=== PATIENT | male | born 1950 | race Caucasian/White ===

== ENCOUNTER 2017-08-11 07:35 | Inpatient (IN) | payer BC, MEDICARE ==
[2017-07-30 11:42] VITALS: BMI 38.0
--- NOTE | 2017-08-10 14:36 | HP ---
HISTORY AND PHYSICAL REASON FOR ADMISSION: Surgery scheduled for 08/11/2017 HISTORY OF PRESENT ILLNESS: Milton Lopez is a 67-year-old patient seen with symptomatic right knee osteoarthritis. After treatment options were discussed, he elected to proceed with right total knee arthroplasty. Consent regarding procedure obtained. Medical clearance provided by Dr. Dobbs. PAST MEDICAL HISTORY: COPD and hypertension. PAST SURGICAL HISTORY: Back surgery. MEDICATIONS: Furosemide, potassium, spironolactone. ALLERGIES: None reported. SOCIAL HISTORY: Patient denies current tobacco use. PHYSICAL EXAMINATION: Evaluation of the right knee is range of motion is -12 to 110 degrees. Moderate effusion. Tenderness along the medial and lateral joint lines. Crepitus medial and patellofemoral compartments with range of motion. Pain with patellofemoral compression. Ligaments stable. Hip rotation without pain. Distal neurovascular exam intact. RADIOGRAPHS: Radiographs of the right knee reveal severe medial and patellofemoral compartment osteoarthritis. IMPRESSION: 1. Right knee osteoarthritis. 2. Hypertension. 3. Chronic obstructive pulmonary disease. PLAN: Right total knee arthroplasty. Surgery scheduled for 08/11/2017. MMODL / IJN: [id number] /
[~2017-08-11 07:35] MED LIST: ACETAMINOPHEN TAB 500 MG TAB PO ONE; HYDROmorphone 0.5 MG/0.5 ML SYRINGE IVP PRN; LIDOCAINE 1% 20 ML VIAL (10MG/ML) FOR IV START INTRADERMA PRN; MELOXICAM 7.5 MG TAB PO ONE; MIDAZOLAM 2 MG/2 ML VIAL IV PRN; ONDANSETRON 4 MG/2 ML VIAL IVP ONE; TRANEXAMIC ACID 1,000 MG in SODIUM CHLORIDE 0.9% 100 ML IVPB ONE
[2017-08-11] MEDS: LACTATED RINGERS 1,000 ML IV SCH ×3 (08:24→22:49)
[2017-08-11] MEDS: fentaNYL (PF) 50 MCG/ML 20 ML VIAL IVP PRN ×2 (09:03→09:43)
[2017-08-11] MEDS ORDERED: ROPIVACAINE 1,100 MG, SODIUM CHLORIDE 0.9% 330 ML MISCELLANE PRN ×2 (09:33)
[2017-08-11] MEDS ORDERED: ROPIVACAINE 246.25 MG, EPINEPHrine 0.5 MG, KETOROLAC 30 MG, cloNIDine HCL/PF 80 MCG, WA... MISCELLANE ONE ×5 (09:34)
--- NOTE | 2017-08-11 09:35 | P.ONQ ---
Anesthesiology Proc Note - PNB - Peripheral Nerve Block Performed Right Adductor Canal Infusion Time Out Performed: Yes Procedure Start Time: 09:03 Indication: Acute Post-Operative Pain, Analgesia Specifically requested for management of pain by DrBola: Luis Angel Casillas Sedation Type: Sedate with meaningful contact maintained Preparation: Sterile Prep Position: Supine Catheter Depth at Skin (cm): 8 Catheter: Indwelling Needle Types: Other (see comment) (Pajunk) Needle Size: 100mm (4") Needle Gauge: 18 Technique: Ultrasound Injectate: 0.5% Ropivacaine (see comment for volume) (20 cc) Blood Aspirated: No Pain Paresthesia on Injection Noted: No Resistance on Injection: Normal Events: Uneventful and Well Tolerated
[2017-08-11] MEDS ORDERED: PROPOFOL 10 MG/ML 20 ML VIAL IV ONE (10:05)
[2017-08-11] MEDS ORDERED: fentaNYL (PF) 50 MCG/ML 2 ML AMP ONE (10:05)
[2017-08-11] MEDS ORDERED: MIDAZOLAM 2 MG/2 ML VIAL ONE (10:05)
[2017-08-11] MEDS ORDERED: TRANEXAMIC ACID 1,000 MG/10 ML VIAL ONE (10:05)
[2017-08-11] MEDS ORDERED: SODIUM CHLORIDE 0.9% 100 ML BAG ONE (10:05)
[2017-08-11] MEDS ORDERED: ceFAZolin 3,000 MG in SODIUM CHLORIDE 0.9% IRRIGATIO 3,000 ML IRRIGATION ONE (10:41)
[2017-08-11] MEDS ORDERED: NALOXONE 0.4 MG/ML 1 ML VIAL IV PRN (12:12)
[2017-08-11] MEDS ORDERED: HYDROmorphone 2 MG/ML 1 ML SYRINGE IVP PRN ×3 (12:12)
[2017-08-11] MEDS ORDERED: hydrOXYzine PAMOATE 25 MG CAP PO PRN (12:12)
[2017-08-11] MEDS ORDERED: HYDROcodone/APAP 7.5-325MG 1 EACH TAB PO PRN (12:12)
[2017-08-11] MEDS ORDERED: ONDANSETRON 4 MG/2 ML VIAL IVP PRN (12:12)
--- NOTE | 2017-08-11 12:12 | P.OP ---
Date of Procedure: 08/11/17 Preoperative Diagnosis: Right knee osteoarthritis Postoperative Diagnosis: Right knee osteoarthritis Procedure(s) Performed: Right total knee arthroplasty Implants: 1. Viviane persona size 11 right standard cruciate retaining cemented femur 2. Viviane persona size G cemented tibia 3. Viviane persona 10 mm medial congruent polyethylene tibial insert 4. Viviane persona 38 mm all polyethylene cemented patella Anesthesia: regional (Adductor canal catheter), local, spinal Surgeon: Luis Angel Casillas Gray Tender #1: Flaco Boo Estimated Blood Loss (ml): 75 Pathology: other (Bone) Condition: stable Disposition: PACU Indications for Procedure: 67-year-old patient seen with symptomatic right knee osteoarthritis. After treatment options were discussed, he elected to proceed with total knee arthroplasty. Operative Findings: See description of procedure Description of Procedure: Patient was taken to the operative suite after having an adductor canal catheter placed by the department of anesthesia.. Patient underwent a spinal anesthetic by the department of anesthesia. Patient was given preoperative IV intake antibiotics and TXA. A well-padded tourniquet was placed about the right lower extremity. The lower extremity was then prepped and draped in the normal sterile orthopedic fashion. The extremity was elevated, a tourniquet was insufflated to 350. A standard anterior incision was made sharply through skin. Dissection was taken down through the subcutaneous soft tissues down to the extensor mechanism. A medial arthrotomy was performed, patella was everted and knee was flexed. There was advanced osteoarthritis noted. A proximal tibial cutting guide was positioned. Proximal tibial cut was made. A distal intramedullary femoral cutting guide was positioned, distal femoral cut made. We placed the appropriate sizing guide and selected the appropriate size. A distal 4-in-1 femoral cutting block was positioned, distal femoral cuts were made. We now placed a trial femoral component into position, along with an appropriate size tibial tray and insert. We now took the knee through range of motion and had full extension good flexion and good overall soft tissue balance noted. The patella was everted and a flush cut made with patellar quad tendon. We templated the patella, appropriate drill holes were made. An appropriate trial patella was positioned, knee was taken through full range of motion with the patella tracking very nicely. The trial patella was removed. Drill holes were made through the femoral component. All trial components were removed after marking off the appropriate rotation of the tibia. Retractors were now positioned along the proximal tibia. An appropriate keel punch was made with the appropriate size tibial guide. At this point appropriate size implants were chosen and opened. The joint was irrigated copiously with pulse lavage mechanical irrigation. The posterior capsule was infiltrated with local analgesic. We mixed antibiotic methylmethacrylate. Once the methyl methacrylate was ready, the tibial component was cemented into place removing any excess methylmethacrylate. The femoral component was cemented into place removing the removing any excess methylmethacrylate. We then inserted the appropriate size polyethylene tibial insert. We made sure that it was locked into position. We took the knee into full extension, and then back in a flexion making sure we had removed any excess methylmethacrylate. The patellar component was then cemented down and secured with clamp. Excess methylmethacrylate removed. We kept the knee in full extension, patellar clamp in position until methylmethacrylate had hardened. Once it had hardened the patellar clamp was removed. The knee was taken through full range of motion. The patella tracked nicely. There was good soft tissue balancing. The tourniquet was now released. Additional hemostasis was achieved via electrocautery. A second gram of TXA was given. The superficial soft tissues were infiltrated local analgesic. The wound was irrigated with pulse lavage mechanical irrigation. The extensor mechanism was repaired with Vicryl. We checked the repair with range of motion and it was stable. The subcutaneous soft tissues were repaired with Vicryl in layers. The skin was approximated with pernio/Dermabond. Sterile dressings were applied followed by loose web roll and Dwain bandage. The patient was transferred to a bed, and taken to recovery in stable and satisfactory condition. Torito ANTONIO assisted with the procedure.
[2017-08-11] MEDS ORDERED: traMADol 50 MG TAB PO SCH (13:00)
--- NOTE | 2017-08-11 14:01 | XR ---
EXAMINATION TYPE: XR knee limited RT DATE OF EXAM: 08/11/2017 CLINICAL HISTORY: Right knee pain and arthritis status post total knee replacement. TECHNIQUE: Portable AP and crosstable lateral views of the right knee are obtained immediately posto peratively. COMPARISON: None FINDINGS: Metallic hardware from total right knee arthroplasty is seen and appears satisfactory in a lignment and position. There is evidence of recent surgery with diffuse subcutaneous and diffuse sof t tissue swelling noted. Atherosclerosis of the femoral artery and its branches are incidentally note d. IMPRESSION: METALLIC HARDWARE FROM TOTAL RIGHT KNEE ARTHROPLASTY IS SATISFACTORY IN ALIGNMENT.
[2017-08-11] MEDS: traMADol 50 MG TAB PO SCH ×2 (18:03→20:51)
[2017-08-11] MEDS: ENOXAPARIN 30 MG/0.3 ML SYRINGE SQ SCH (20:46)
[2017-08-11] MEDS ORDERED: SENNOSIDES-DOCUSATE SODIUM 1 EACH TAB PO SCH (21:00)
[2017-08-12] MEDS: HYDROcodone/APAP 7.5-325MG 1 EACH TAB PO PRN ×3 (01:48→14:44)
[2017-08-12 02:10] VITALS: RESP 16
[2017-08-12] MEDS: LACTATED RINGERS 1,000 ML IV SCH ×2 (06:08→07:03)
[2017-08-12 07:22] VITALS: BP 127/69; PULSE 69; TEMP 97.6
[2017-08-12 07:44] LABS: Basophils % (A) 0 %; Eosinophils % (A) 0 %; HCT 40.2 % (39.0-53.0); HGB 12.9 gm/dL (13.0-17.5); Lymphocytes # (A) 0.8 k/uL (1.0-4.8); Lymphocytes % (A) 9 %; MCH 29.7 pg (25.0-35.0); MCV 92.7 fL (80.0-100.0); Mean Platelet Volume 7.8; Monocytes # (A) 0.4 k/uL (0-1.0); Monocytes % (A) 5 %; Neutrophils # (A) 7.3 k/uL (1.3-7.7); Neutrophils % (A) 83 %; Platelet Count 147 k/uL (150-450); RBC 4.34 m/uL (4.30-5.90); RDW 14.3 % (11.5-15.5); WBC 8.8 k/uL (3.8-10.6)
[2017-08-12] MEDS: traMADol 50 MG TAB PO SCH ×2 (08:16→12:47)
[2017-08-12] MEDS: ENOXAPARIN 30 MG/0.3 ML SYRINGE SQ SCH (08:16)
[2017-08-12] MEDS ORDERED: MELOXICAM 7.5 MG TAB PO SCH (09:00)
[2017-08-12] MEDS ORDERED: SPIRONOLACTONE 25 MG TAB PO SCH (09:00)
[2017-08-12] MEDS ORDERED: FAMOTIDINE 20 MG TAB PO SCH (09:00)
[2017-08-12] MEDS ORDERED: FUROSEMIDE 40 MG TAB PO SCH (09:00)
[2017-08-12] MEDS ORDERED: POTASSIUM CHLORIDE ER 10 MEQ TAB.ER.PRT PO SCH (09:00)
--- NOTE | 2017-08-12 09:20 | P.PN ---
Progress Note - Text Anesthesia POD 1. Patient is status post right TKR under on anesthesia with a right adductor canal catheter placed for postoperative pain relief. With ropivacaine 0.2% running at 10 cc's per hour, the patient's VAS is (2, 4). Catheter site is clean dry and intact.
--- NOTE | 2017-08-12 11:14 | CONS ---
CONSULTATION CHIEF COMPLAINT: A 67-year-old white male with right knee osteoarthritis. HISTORY OF PRESENT ILLNESS: a 67-year-old white male, status post right total knee arthroscopy for medical management consult. Patient states he has no pain on his knee, he is able to bend it. He wants to go home tomorrow. He is having no chest pain, shortness of breath. He has a history of COPD, hypertension, right-sided heart failure, diastolic CHF. PAST MEDICAL HISTORY: COPD, hypertension. Ex-nicotine addiction 4 years ago, quit. SURGICAL HISTORY: Back surgery. MEDICATIONS: Furosemide, potassium, spironolactone. ALLERGIES: Negative. SOCIAL HISTORY: No alcohol, illicit drugs. PHYSICAL EXAM: Vital signs are stable, afebrile. CARDIOVASCULAR: S1, S2. LUNGS: Clear. GI: Soft. HEMATOLOGIC: Negative Homans. PSYCH: Fair mood and affect. ASSESSMENT: 1. Status post right knee, total knee replacement. 2. Hypertension. 3. Chronic obstructive pulmonary disease. 4. Suspect diastolic heart failure. Resume home medications. Continue with PT, OT, and ambulation. Possible discharge home tomorrow. Medically stable at this time. MMODL / IJN: [id number] /
[2017-08-12] MEDS ORDERED: MULTIVITAMINS, THERA 1 EACH TAB PO SCH (12:00)
--- NOTE | 2017-08-12 13:16 | P.PN ---
Subjective Progress Note Date: 08/12/17 Principal diagnosis: Status post right total knee arthroplasty Patient seen today resting in his hospital chair, he appears comfortable. Patient's done very well at this point, he is ambulated with therapy. He is urinating on his own. He's had no breakthrough pain. He denies any headaches, lightheadedness, chest pain, shortness of breath. Objective - Vital Signs Vital signs: Vital Signs Temp 97.6 F 08/12/17 07:00 Pulse 69 08/12/17 07:00 Resp 16 08/12/17 07:00 BP 127/69 08/12/17 07:00 Pulse Ox 91 L 08/12/17 07:00 Intake & Output 08/11/17 08/12/17 08/12/17 18:59 06:59 18:59 Intake Total 851 0 Output Total 375 Balance 476 0 Weight 127.006 kg Intake: IV 851 Intake, IV Titration 1200 Amount Lactated Ringers 1,000 ml 1150 @ 100 mls/hr IV .Q10H WAYLON Rx#:[id number] ceFAZolin 3 gm In Sodium 50 Chloride 0.9% 50 ml @ 50 mls/hr IVPB Q8H WAYLON Rx#: [id number] Oral 850 Output: Urine 300 Estimated Blood Loss 75 Other: Voiding Method Urinal Urinal Urinal # Voids 2 - Exam Right lower extremity: Incision is clean, dry, and intact. The prineo tape is in good condition. There is minimal soft tissue swelling and ecchymosis surrounding the medial and lateral aspects of the incision. Calf is soft, no tenderness with palpation. Plantar flexion, dorsiflexion, EHL, FHL are intact. Sensory exam to light touch throughout the extremity is intact, dorsal pedis pulses 2+. - Labs CBC & Chem 7: 08/12/17 06:57 Labs: Abnormal Lab Results - Last 24 Hours (Table) 08/12/17 Range/Units 06:57 Hgb 12.9 L (13.0-17.5) gm/dL Plt Count 147 L (150-450) k/uL Lymphocytes # 0.8 L (1.0-4.8) k/uL Assessment and Plan Plan: Assessment: 1. Postop day #1 status post right total knee arthroplasty Plan: 1. Pain control, we'll discharge home on oral medication 2. GI and DVT prophylaxis, aspirin 325 mg twice a day 3. Wound care instructions were discussed 4. Home physical therapy and nursing, CPM at home 5. Medical recommendations 6. Discharge planning: Patient will likely be discharged home today Time with Patient: Less than 30
--- NOTE | 2017-08-12 13:18 | P.DS ---
Providers Date of admission: 08/11/17 07:35 Expected date of discharge: 08/12/17 Attending physician: Luis Angel Casillas Consults: 08/11/17 12:12 Consult Physician Routine Consulting Provider: Timothy Garcia Reason/Comments: Medical management Do you want consulting provider notified?: Yes Primary care physician: Sina Angelrien [facility] Course: Date of admission: 08/11/2017 Date of discharge: 08/12/2017 Admission diagnosis: Status post right total knee arthroplasty Discharge diagnosis: Same Attending physician: Dr. Casillas Surgical procedures: right total knee arthroplasty Brief history: Patient is a a 67-year-old male with a history of of progressive primary right knee osteoarthritis. At this point patient has failed conservative treatment measures and has opted to proceed with a elective right total knee arthroplasty. Hospital course: Details of patient's surgery can be found in operative report. Patient tolerated the procedure well and was subsequently transported to orthopedic floor. Patient's orthopeidc and medical care was provided daily. Patient had daily laboratory tests performed for evaluation of overall blood counts . Patient had daily physical therapy to include strengthening range of motion as well as education with walker ambulation. Patient had daily CPM usage as part of their physical therapy program. Patient was treated with Lovenox for their postoperative DVT prophylaxis during their inpatient stay. Patient was noted to have a relatively uneventful postoperative course. Patient reported satisfactory pain control with oral pain medications by postoperative day 0. Patient showed satisfactory progress with physical therapy. Patient moved steadily through the program and had no difficulty meeting the goals by postoperative day 1. Given patient's otherwise satisfactory course and having met physical therapy goals, plan is to discharge patient home on postoperative day 1. Discharge condition/disposition: Patient will be discharged home in stable condition. Discharge medications: Instructions are given on resumption of patient's normal daily medications per primary care recommendation, in addition patient will be prescribed Brewster 7.5 mg/325 mg, tramadol 50 mg, Colace 100 mg, aspirin 325 mg. Discharge instructions: 1. Wound care and infection precautions, keep incision dry and covered while showering, no lotions, creams, moisturizers. No soaking, tubs, pools, hottubs. Do not scrub over the incision. 2. Weight-bear as tolerated with walker / cane until follow-up. 3. Ice and elevate when necessary. Do not exceed 20 minutes per hour with ice pack. 4. Utilize compression sleeve until seen at first follow up appointment. 5. Visiting nursing care. 6. Home physical therapy including home CPM. 7. Pain meds and anticoagulants per prescription. 8. Pain medication has potential to cause constipation. Increase oral fluid and fiber intake. Contact primary care provider if you have not had a bowel movement within 48 hours after discharge 9. No anti-inflammatory medication until discussed at first post operative visit, this including Motrin, Aleve, Mobic, Diclofenac. 10. Follow up in office at 2 weeks postop with Torito Boo PA-C 11. Follow up with your primary care doctor 7-10 days after discharge. 12. Contact [facility] with any questions, . Procedures: Right total knee arthroplasty Patient Condition at Discharge: Good Plan - Discharge Summary Discharge Rx Participant: Yes New Discharge Prescriptions: New Aspirin 325 mg PO BID #60 tab Docusate [Colace] 100 mg PO DAILY #30 capsule HYDROcodone/APAP 7.5-325MG [Brewster 7.5] 1 - 2 each PO Q6HR PRN #60 tab PRN Reason: Pain traMADol HCl [Ultram] 50 mg PO Q6H PRN #40 tab PRN Reason: Pain No Action Spironolactone [Aldactone] 50 mg PO DAILY Meloxicam [Mobic] 15 mg PO DAILY Furosemide [Lasix] 40 mg PO DAILY Potassium Chloride [Klor-Con 10] 10 meq PO DAILY Discharge Medication List Furosemide [Lasix] 40 mg PO DAILY 07/30/17 [History] Meloxicam [Mobic] 15 mg PO DAILY 07/30/17 [History] Potassium Chloride [Klor-Con 10] 10 meq PO DAILY 07/30/17 [History] Spironolactone [Aldactone] 50 mg PO DAILY 07/30/17 [History] Aspirin 325 mg PO BID #60 tab 08/12/17 [Rx] Docusate [Colace] 100 mg PO DAILY #30 capsule 08/12/17 [Rx] HYDROcodone/APAP 7.5-325MG [Brewster 7.5] 1 - 2 each PO Q6HR PRN #60 tab 08/12/17 [ Rx] traMADol HCl [Ultram] 50 mg PO Q6H PRN #40 tab 08/12/17 [Rx] Follow up Appointment(s)/Referral(s): Sina Zapata DO [Primary Care Provider] - 08/26/17 2:00 pm Flaco Boo PAC [PH[employer]] - 08/27/17 1:30 pm Patient Instructions/Handouts: Knee Replacement (DC) Activity/Diet/Wound Care/Special Instructions: Orthopedic Discharge Instructions: 1. Wound care and infection precautions, keep incision dry and covered while showering, no lotions, creams, moisturizers. No soaking, pools, hot tubs. Do not scrub over incision. 2. Weight-bear as tolerated with walker / cane until follow-up. 3. Ice and elevate when necessary. Do not exceed 20 minutes per hour with ice pack. 4. Utilize compression sleeve until seen at first follow up appointment. 5. Visiting nursing care. 6. Home physical therapy including home CPM. 7. Pain meds and anticoagulants per prescription. 8. Pain medication has potential to cause constipation. Increase oral fluid and fiber intake. Contact primary care provider if you have not had a bowel movement within 48 hours after discharge. 9. No anti-inflammatory medication until discussed at first post operative visit, this including Motrin, Aleve, Mobic, Diclofenac. 10. Follow up in office at 2 weeks postop with Torito Boo PA-C 11. Follow up with your primary care doctor 7-10 days after discharge. 12. Contact [facility] with any questions, . Discharge Disposition: HOME WITH HOME HEALTH SERVICES
== END 2017-08-12 14:55 | disposition home health service (06) | DRG 470 ==
LOC: 2ORMAIN 07:35 → 3SUR 16:06
PROVIDERS: ADMIT Orthopaedic Surgery; ATTEND Orthopaedic Surgery
PROC: 0SRC0J9 Replacement of Right Knee Joint with Synthetic Substitute, Cemented, Open Approach (ICD-10-PCS; principal; 2017-08-11 10:20)
DX: M17.11 Unilateral primary osteoarthritis, right knee (principal); I50.32 Chronic diastolic (congestive) heart failure; I11.0 Hypertensive heart disease with heart failure; I27.81 Cor pulmonale (chronic); J44.9 Chronic obstructive pulmonary disease, unspecified; G47.30 Sleep apnea, unspecified; Z87.891 Personal history of nicotine dependence; Z79.899 Other long term (current) drug therapy
CPT/HCPCS: 85025; 88300

== ENCOUNTER → 2018-09-28 | Outpatient (CLI) | payer MEDICARE ==
[2018-09-28 10:19] LABS: Anion Gap 5 mmol/L; Basophils # (A) 0.1 k/uL (0-0.2); Basophils % (A) 1 %; Blood Urea Nitrogen 21 mg/dL (9-20); Calcium 9.2 mg/dL (8.4-10.2); Carbon Dioxide 31 mmol/L (22-30); Chloride 102 mmol/L (98-107); Eosinophils # (A) 0.1 k/uL (0-0.7); Eosinophils % (A) 1 %; Glucose 190 mg/dL (74-99); HCT 46.6 % (39.0-53.0); HGB 14.9 gm/dL (13.0-17.5); INR 0.9 (<1.2); Lymphocytes % (A) 17 %; MCH 29.8 pg (25.0-35.0); MCHC 31.9 g/dL (31.0-37.0); MCV 93.5 fL (80.0-100.0); Monocytes # (A) 0.3 k/uL (0-1.0); Monocytes % (A) 5 %; Neutrophils # (A) 4.4 k/uL (1.3-7.7); Neutrophils % (A) 75 %; Partial Thromboplastin Time 23.1 sec (22.0-30.0); Platelet Count 158 k/uL (150-450); Potassium 4.6 mmol/L (3.5-5.1); Prothrombin Time 10.2 sec (9.0-12.0); RBC 4.99 m/uL (4.30-5.90); RDW 13.8 % (11.5-15.5); Sodium 138 mmol/L (137-145); WBC 5.9 k/uL (3.8-10.6)
[2018-09-28 10:35] LABS: Appearance,Urine Clear (Clear); Bilirubin,Urine Negative (Negative); Blood,Urine Negative (Negative); Color,Urine Yellow; Glucose,Urine (UA) 4+ (Negative); Ketones,Urine Negative (Negative); Leukocyte Esterase,Urine Negative (Negative); Nitrite,Urine Negative (Negative); Protein,Urine Trace (Negative); Specific Gravity,Urine 1.021 (1.001-1.035); Urobilinogen,Urine <2.0 mg/dL (<2.0)
--- NOTE | 2018-09-28 15:45 | XR ---
EXAMINATION TYPE: XR chest 2V DATE OF EXAM: 09/28/2018 COMPARISON: 12/05/2017 INDICATION: Presurgical testing TECHNIQUE: Frontal and lateral views of the chest are obtained. FINDINGS: The heart size is normal. The pulmonary vasculature is normal. There is some linear opacity along the left lung base. Lungs are otherwise clear.. IMPRESSION: 1. Minimal plate atelectasis at the left diaphragm.
== END | disposition home or self-care (01) ==
LOC: LABPAT 08:51
PROVIDERS: ATTEND Orthopaedic Surgery Orthopaedic Surgery of the Spine
DX: Z01.818 Encounter for other preprocedural examination (principal); M48.02 Spinal stenosis, cervical region; Z01.812 Encounter for preprocedural laboratory examination; Z79.01 Long term (current) use of anticoagulants
CPT/HCPCS: 36415; 71046; 80048; 81003; 85025; 85610; 85730; 93005

== ENCOUNTER 2018-11-04 11:09 | Inpatient (IN) | payer MEDICARE ==
[~2018-11-04 11:09] MED LIST changes: -ACETAMINOPHEN TAB 500 MG TAB PO ONE; +BACITRACIN 50,000 UNIT, POLYMYXIN B 500,000 UNIT in SODIUM CHLORIDE 0.9% IRRIGATIO 1,00... IRRIGATION ONE; +DEXAMETHASONE SOD PHOSPHATE 10 MG/ML 1 ML VIAL IV ONE; -MELOXICAM 7.5 MG TAB PO ONE; -MIDAZOLAM 2 MG/2 ML VIAL IV PRN; +ONDANSETRON 4 MG/2 ML VIAL IVP PRN; +SCOPOLAMINE 1.5MG/72HR PATCH TRANSDERM ONE; -TRANEXAMIC ACID 1,000 MG in SODIUM CHLORIDE 0.9% 100 ML IVPB ONE; +ceFAZolin 3 GM in SODIUM CHLORIDE 0.9% 100 ML IVPB ONE
[2018-11-04] MEDS: LACTATED RINGERS 1,000 ML IV SCH (12:03)
[2018-11-04] MEDS ORDERED: BUPIVACAINE-EPI 0.5%-1:200,000 10 ML VIAL SQ ONE (13:19)
[2018-11-04] MEDS ORDERED: GELATIN SPONGE,ABSORB (LARGE) 1 EACH SPONGE MISCELLANE ONE (13:19)
[2018-11-04] MEDS ORDERED: THROMBIN (BOVINE) 5,000 UNIT VIAL TOPICAL ONE (13:19)
[2018-11-04] MEDS ORDERED: MIDAZOLAM 2 MG/2 ML VIAL ONE (13:21)
[2018-11-04] MEDS ORDERED: KETAMINE 10 MG/ML 20 ML VIAL ONE (13:21)
[2018-11-04] MEDS ORDERED: fentaNYL (PF) 50 MCG/ML 2 ML AMP ONE (13:21)
[2018-11-04] MEDS ORDERED: SUCCINYLCHOLINE CHLORIDE VIAL 200 MG/10 ML VIAL IV ONE (13:21)
[2018-11-04] MEDS ORDERED: PROPOFOL 10 MG/ML 20 ML VIAL IV ONE (13:21)
[2018-11-04] MEDS ORDERED: ePHEDrine SULFATE/0.9% NACL/PF 50 MG/5 ML SYRINGE IV ONE (13:21)
[2018-11-04] MEDS ORDERED: SODIUM CHLORIDE 0.9% 50 ML with ceFAZolin 3 GM IV ONE ×2 (13:30)
[2018-11-04] MEDS ORDERED: LACTATED RINGERS 1,000 ML IV ONE (14:45)
[2018-11-04] MEDS ORDERED: HYDROcodone/APAP 5-325MG 1 EACH TAB PO PRN (15:42)
[2018-11-04] MEDS ORDERED: ONDANSETRON 4 MG/2 ML VIAL IVP PRN (15:42)
[2018-11-04] MEDS ORDERED: MAGNESIUM HYDROXIDE 2,400 MG/10 ML CUP PO PRN (15:42)
[2018-11-04] MEDS ORDERED: ACETAMINOPHEN TAB 325 MG TAB PO PRN (15:42)
[2018-11-04] MEDS ORDERED: HYDROmorphone 1 MG/ML 1 ML SYRINGE IVP PRN (15:42)
[2018-11-04] MEDS ORDERED: HYDROmorphone 0.5 MG/0.5 ML SYRINGE IVP PRN (15:42)
[2018-11-04] MEDS ORDERED: BENZOCAINE/MENTHOL LOZENG 1 EACH LOZENGE MUCOUS MEM PRN (15:42)
[2018-11-04] MEDS ORDERED: PANTOPRAZOLE 40 MG TABLET PO PRN (15:44)
--- NOTE | 2018-11-04 15:56 | P.OP ---
Date of Procedure: 11/04/18 Preoperative Diagnosis: Cervical myelopathy, Severe cervical stenosis C4 5 C5 6 behind the vertebral body of C5, cervical myelomalacia, upper extremity radiculopathy, upper extremity weakness, myeloradiculopathy Postoperative Diagnosis: Same Anesthesia: GETA Pathology: none sent Condition: stable Disposition: PACU Description of Procedure: BRIEF OPERATIVE NOTE Preoperative Diagnosis: Cervical myelopathy, cervical myelomalacia, severe cervical stenosis C4 5 C5 6 with stenosis behind C5, degenerative disc disease, upper extremity radiculopathy, upper extremity weakness, myeloradiculopathy Postoperative Diagnosis: Same Procedure: Anterior cervical decompression with discectomy and fusion C4 5 C5 6 Cervical total corpectomy of C5 for decompression Harvesting of autogenous bone graft from C5 for use later as autogenous graft Placement of interbody graft from C4 to C6 Application of anterior cervical plate from C4 to C6 Surgeon: Dr. Freire Clock Maker: Troy Camargo is present throughout the entire the case persistence during positioning, dissection, exposure, visualization, and all c rucial elements of the case as well as closure. Anesthesia: General anesthesia Estimated blood loss: Approximately 50 mL Complications: None apparent Components implanted: K2M [place] anterior cervical plate system with 4 screws and a peek interbody graft measuring 24 mm filled with local autogenous bone graft Disposition: To recovery room in good stable condition. OPERATIVE INDICATIONS The patient has had long-standing issues in their neck and upper extremities. He has evidence of cervical myelopathy with cervical myelomalacia. He has severe cervical stenosis at C45 and 6 with upper extremity radiculopathy and weakness. He was having worsening symptoms despite conservative care. The patient has been through conservative treatment. His imaging correlated well with his neck and upper extremity symptoms and he was having worsening of his symptoms. We discussed various treatment options including surgery, and the patient wishes to proceed with surgery We discussed the risk, patient's alternatives and benefits of surgery including but not limited to, risk of bleeding risk of infection, risk of need for further surgery, risk of decreased, loss of motion, muscle function, malunion nonunion, hardware failure, nerve damage, paralysis, heart attack, and . OPERATIVE SUMMARY After discussing all the risks, patient alternatives and benefits at length, the patient elected to proceed with surgical intervention, signed informed consent, and presented for their procedure. The patient was seen and examined in the preoperative holding area and the surgical site was marked. The patient was given antibiotics and brought to the operating room. The patient was positioned on the operating room table in a supine position being careful to pad any bony prominences and pressure points. The patient was sedated and intubated by anesthesia in standard fashion. Once the airway and C- spine were stabilized the patient's arms were padded and tucked at her side, with her shoulders gently taped. The head was placed in a donut pad with the neck in good neutral alignment and position. We were careful to maintain the patient's cervical spine and good neutral alignment and position throughout. The patient was prepped and draped in a normal standard fashion. An appropriate timeout and keystone protocol performed. We were able to proceed with the surgery. The local wound area was infiltrated with local anesthetic. An incision was made transversely approximately 2-1/2 cm over the appropriate levels at level C5. Dissection was taken down subcutaneously to the level of th e platysma which was split in line with its fibers. Dissection was taken with a carotid approach, with the trachea and esophagus medial and the carotid sheath laterally. We dissected down to the anterior surface of the vertebral bodies. Intraoperative x-ray was taken which showed a marker at the appropriate level of C5 6. With the appropriate level positively confirmed, we were able to proceed with discectomy at the appropriate levels starting at C4 5 and then at C5 6. All of the operative levels were exposed appropriately. The patient had significant stenosis behind vertebral body of C5 it was planned to perform corpectomy of C5 as well. The patient had all their twitches back, and there was no evidence of recurrent laryngeal issue. The wound was copiously irrigated and suctioned dry as had been done periodically throughout the case. At the appropriate level/levels, starting at C4 5 and then moving C5 6 I established an annulotomy with an 11 blade scalpel. A discectomy was performed with a combination of pituitary rongeurs, curettes, a high-speed bur, and Kerrison rongeurs. The posterior longitudinal ligament was taken down as were any posterior osteophytes. There is evidence of severe stenosis centrally in the bilateral neural foramen. With the discectomy was able get excellent central and peripheral decompression. This gave good central and bilateral foraminal d ecompression. However the remaining significant stenosis behind the vertebral body of C5. I went ahead with the procedure of corpectomy of C5. We did a complete corpectomy of C5. All bone that was removed was harvested for bone grafting. I was able to remove the vertebral body of C5 and I was able to get excellent decompression of the spinal cord behind C5 vertebrae. There is no evidence of any dural tear or leak. The endplates were prepared with a high-speed bur. With the endplates in good parallel position, I was able to size for the appropriate size interbody graft. The space was measured with a caliper. The bone graft was chosen and the occipital core of the peek graft was filled with cancellus autograft bone graft was harvested earlier. We had anesthesia do gentle in-line traction at the patient's cervical spine and we will to place the peek graft filled with autograft bone graft into the space from C4 to C6. The graft had excellent fit and fill. It was checked and found have good inherent stability. The wound was irrigated and suctioned dry the graft was prepared and malleted into position. It had good alignment and position with the anterior surface flush with the anterior surface of the vertebral bodies. With the grafts intact, I was able to measure and contour and appropriate sized plate. The plate was positioned at the midline over the appropriate levels from C4 to C6. Screw holes were established with a hand drill and drill guide. Screws were placed in good alignment and position with excellent bony purchase. They were seated under the locking device. The construct was checked and found to be stable. Intraoperative x-ray was taken which showed good alignment and position of the implants at the appropriate levels. There was no evidence of any dural tear or leak. Good hemostasis was maintained. The wound was copiously irrigated and suctioned dry as had been done periodically throughout the case. The platysma was closed with absorbable suture. The subcutaneous tissue was closed. The subcuticular tissue was closed with absorbable suture. The wound was cleaned and dried and dressed appropriately. A soft cervical collar was placed appropriately. The patient was woken up by anesthesia, extubated, transferred back gently to their hospital bed and brought to the recovery room in good stable condition. The patient will be admitted to the hospital for appropriate postoperative care, medical management and monitoring. We will continue to follow them closely about the postoperative course.
[2018-11-04] MEDS ORDERED: DIAZEPAM 5 MG TAB PO PRN (16:32)
[2018-11-04 16:35] VITALS: RESP 18
[2018-11-04 17:12] VITALS: BMI 39.2
[2018-11-04] MEDS: SODIUM CHLORIDE 0.9% 1,000 ML IV SCH ×2 (17:43→21:19)
[2018-11-04] MEDS: FUROSEMIDE 40 MG TAB PO SCH (17:44)
[2018-11-04] MEDS: ceFAZolin 3 GM in SODIUM CHLORIDE 0.9% 100 ML IVPB SCH (21:18)
[2018-11-05] MEDS: LACTATED RINGERS 1,000 ML IV SCH (04:25)
[2018-11-05 05:38] VITALS: BP 126/71; PULSE 51; TEMP 97.6
[2018-11-05] MEDS: ceFAZolin 3 GM in SODIUM CHLORIDE 0.9% 100 ML IVPB SCH (05:44)
[2018-11-05] MEDS: FUROSEMIDE 40 MG TAB PO SCH (07:55)
--- NOTE | 2018-11-05 08:53 | P.DS ---
Providers Date of admission: 11/04/18 11:09 Attending physician: Maxi Freire Consults: 11/04/18 16:11 Consult Physician Urgent Consulting Provider: Sina Zapata Consult Reason/Comments: Medical Managment Do you want consulting provider notified?: Yes Primary care physician: Sina Zapata Hospital Course: The patient presented on the day of admission as per their operative note. He had cervical myelomalacia and cervical myelopathy with upper extremity radiculopathy and weakness due to severe cervical stenosis C4 5 C5 6. He underwent anterior cervical decompression with total corpectomy at C5 as per his operative note. He feels he is doing well today. He feels his neck and arms have made some improvement already though he is having some soreness around his neck and between his shoulder blades as expected. Physical Exam The incision site is clean dry and intact. There is no erythema no drainage. There is no purulence no evidence of infection. There is no active drainage. His neck is soft and supple. There is no significant swelling. Abdomen soft and nontender. Chest has good excursion with deep inspiration and expiration. The patient has active and passive range of motion intact at the upper and lower extremities. There is no acute change in neurologic status. He has sustained dorsal flexion plantar flexion and EHL. 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 Hospital Course Postoperative day 1 status post anterior cervical decompression with discectomy at C4 5 and C5 6 with total corpectomy of C5 for decompression with fusion from C4 to C6 for his cervical myelopathy with myelomalacia and severe cervical stenosis with upper extremity radiculopathy and weakness. He is wearing his hard collar and his been up and around his room. He is already had 2 meals. The patient has been making good progress postoperatively. They have completed the prophylactic antibiotics without any signs or symptoms of infection. The patient has been able to advance their diet, and is tolerating diet adequately. The pain was initially controlled with IV medications and is now controlled appropriately with oral medications. The patient has been able to increase their mobilization. The patient has progressed appropriately. I think they are in good stable condition for discharge today. They will be sent home with appropriate prescriptions. I answered their questions to the best of my ability in a language that they can understand and they are agreeable with the plan. They will follow up as directed In approximately 2 weeks or sooner if he has any problems. He'll continues his hard collar when out of bed and soft collar while in bed. Patient Condition at Discharge: Good Plan - Discharge Summary Discharge Rx Participant: Yes New Discharge Prescriptions: New HYDROcodone/APAP 5-325MG [[place] 5] 1 each PO Q6HR PRN #12 tab PRN Reason: Pain No Action Spironolactone [Aldactone] 50 mg PO DAILY Meloxicam [Mobic] 15 mg PO DAILY Furosemide [Lasix] 40 mg PO BID Potassium Chloride [Klor-Con 10] 10 meq PO DAILY Omeprazole 20 mg PO DAILY PRN PRN Reason: acid reflux Discharge Medication List Furosemide [Lasix] 40 mg PO BID 07/30/17 [History] Meloxicam [Mobic] 15 mg PO DAILY 07/30/17 [History] Potassium Chloride [Klor-Con 10] 10 meq PO DAILY 07/30/17 [History] Spironolactone [Aldactone] 50 mg PO DAILY 07/30/17 [History] Omeprazole 20 mg PO DAILY PRN 09/29/18 [History] HYDROcodone/APAP 5-325MG [[place] 5] 1 each PO Q6HR PRN #12 tab 11/05/18 [Rx] Follow up Appointment(s)/Referral(s): Maxi Freire DO [Doctor of Osteopathic Medicine] - 2 Weeks Patient Instructions/Handouts: Cervical Spinal Stenosis (DC) Activity/Diet/Wound Care/Special Instructions: Keep site clean. May shower with waterproof Tegaderm intact. Do not soak in a tub. After 72 hours postoperatively, patient May remove dressing and then may shower with area uncovered. Leave Steri-Strips intact and allow them to fray off on their own. May ambulate as tolerated. Avoid heavy or rigorous activity. No repetitive bending twisting or lifting. No overhead work. Hard collar to be worn when out of bed. Soft collar to be worn while in bed Discharge Disposition: HOME SELF-CARE
[2018-11-05] MEDS ORDERED: POTASSIUM CHLORIDE ER 10 MEQ TAB.ER.PRT PO SCH (09:00)
[2018-11-05] MEDS ORDERED: SENNOSIDES-DOCUSATE SODIUM 1 EACH TAB PO SCH (09:00)
[2018-11-05] MEDS ORDERED: SPIRONOLACTONE 25 MG TAB PO SCH (09:00)
--- NOTE | 2018-11-05 11:01 | XR ---
EXAMINATION TYPE: XR cervical spine 1V DATE OF EXAM: 11/04/2018 COMPARISON: NONE HISTORY: Neck pain. TECHNIQUE: Single portable crosstable lateral cervical spine is acquired. FINDINGS: Exam is performed for intraoperative surgical planning with metallic pointer at the anterio r superior C6 vertebral body level. IMPRESSION: As above.
--- NOTE | 2018-11-05 11:03 | XR ---
EXAMINATION TYPE: XR cervical spine 1V DATE OF EXAM: 11/04/2018 COMPARISON: Cervical spine x-ray earlier today. HISTORY: Neck pain, neck surgery. TECHNIQUE: Portable crosstable lateral view of cervical spine is obtained intraoperatively. FINDINGS: Overlying endotracheal tube is partially imaged. There is new anterior fusion plate from C4 through the C6 vertebra with artificial material in between the anterior fusion plate. Alignment is stable and satisfactory. IMPRESSION: As above.
== END 2018-11-05 10:05 | disposition home or self-care (01) | DRG 472 ==
LOC: 2ORMAIN 11:09 → 3NMEDONC 15:55
PROVIDERS: ADMIT Orthopaedic Surgery Orthopaedic Surgery of the Spine; ATTEND Orthopaedic Surgery Orthopaedic Surgery of the Spine
PROC: 0RB30ZZ Excision of Cervical Vertebral Disc, Open Approach (ICD-10-PCS; 2018-11-04)
PROC: 0RG20A0 Fusion of 2 or more Cervical Vertebral Joints with Interbody Fusion Device, Anterior Approach, Anterior Column, Open Approach (ICD-10-PCS; principal; 2018-11-04 12:55)
DX: M48.02 Spinal stenosis, cervical region (principal); G99.2 Myelopathy in diseases classified elsewhere; I27.81 Cor pulmonale (chronic); I48.91 Unspecified atrial fibrillation; M50.11 Cervical disc disorder with radiculopathy, high cervical region; J44.9 Chronic obstructive pulmonary disease, unspecified; I48.0 Paroxysmal atrial fibrillation; I10 Essential (primary) hypertension; G56.02 Carpal tunnel syndrome, left upper limb; I87.2 Venous insufficiency (chronic) (peripheral); E66.9 Obesity, unspecified; Z68.37 Body mass index [BMI] 37.0-37.9, adult; Z79.899 Other long term (current) drug therapy; Z87.891 Personal history of nicotine dependence; Z96.651 Presence of right artificial knee joint
CPT/HCPCS: 72020; 86850; 86900; 86901